=== PATIENT | male | born 1985 | race Caucasian/White ===

== ENCOUNTER 2020-04-28 09:00 | Emergency (ER) | payer MEDICAID ==
[~2020-04-28] VITALS: Ht 167.6 cm; Wt 99.8 kg
[2020-04-28 09:09] VITALS: Ht 167.6 cm; Wt 99.8 kg
[2020-04-28 11:23] VITALS: BP 147/66
== END 2020-04-28 11:23 | disposition home or self-care (01) ==
LOC: ED 09:00
DX: S76.912A Strain of unspecified muscles, fascia and tendons at thigh level, left thigh, initial encounter (principal); X58.XXXA Exposure to other specified factors, initial encounter; Y93.89 Activity, other specified; Y92.89 Other specified places as the place of occurrence of the external cause; Y99.8 Other external cause status